=== PATIENT | female | born 1940 | race Caucasian/White ===

== ENCOUNTER → 2016-12-09 | Outpatient (CLI) | payer MEDICARE, BC ==
--- NOTE | ~2016-12-09 | CT55 ---
[facility] A Service of [facility] & [facility] RADIOLOGY TEXT RESULTS PATIENT: MARI HENDERSON LOCATION: [facility] : 40 UNIT #: [id number] AGE: [address]: Moisés Cook MD SEX: F ORDER DR: [id number] [facility] [address]. [place], [place] [address] [id number] O MR#: [id number] Acc #: [id number] NAME: MARI HENDERSON : 1940 SEX: F STUDY DATE/TIME: 12/09/2016 14:44 UNIT: [facility] ROOM: STUDY DESCRIPTION: CT Chest W Con Attending Physician: Moisés Cook M.D. Referring Physician: Moisés Cook M.D. Ordering Physician: Moisés Cook M.D. Primary Care Physician: Moisés Cook M.D. MEDICAL IMAGING REPORT This report is preliminary unless electronic signature is present EXAM CT of the chest with contrast INDICATION 76-year-old female with history of a pulmonary nodule. TECHNIQUE CT scan of the chest was performed following the administration of IV contrast. Coronal and sagittal reformatted images were obtained. There are no available studies for comparison. This CT examination was performed with one or more of the following radiation dose reduction techniques: automatic exposure control, adjustment of mA and/or kV according to patient size, and iterative reconstruction. FINDINGS There is no lymphadenopathy. There is a moderate sized hiatal hernia. There is no pleural effusion. There are some calcified mediastinal and hilar lymph nodes. Emphysema. There is biapical scarring. There are scattered tiny micronodules all measuring 4 mm and less. Would recommend a follow up chest CT in 1 year to document stability of these nodules. Limited imaging of the upper abdomen unremarkable. Bone windows are unremarkable. IMPRESSION 1. Emphysema. 2. Scattered tiny micronodules in the lungs all measuring 4 mm and less. Follow up chest CT in 1 year recommended. Dictated by... Schuyler Davidson M.D. THIS IS AN ELECTRONICALLY VERIFIED REPORT STS. [facility] A Service of [facility] & [facility] RADIOLOGY TEXT RESULTS PATIENT: MARI HENDERSON LOCATION: [facility] : 40 UNIT #: [id number] AGE: [address]: Moisés Cook MD SEX: F ORDER DR: Schuyler Davidson M.D. at 12/13/2016 8:04 AM SUSAN/cris TD: 12/12/2016 13:01 JOB #: [id number] MEDICAL IMAGING REPORT Page 1 of 1 COPY
[2016-12-09 14:41] LABS: POC - CREATININE 0.73 mg/dL (0.44-1.03); POC - GFR >60.0 mL/min (>60)
== END | disposition home or self-care (01) ==
LOC: CCAT 14:10
PROVIDERS: Family Medicine
DX: R91.1 Solitary pulmonary nodule (principal); J40 Bronchitis, not specified as acute or chronic; R05 Cough; R06.02 Shortness of breath; R09.89 Other specified symptoms and signs involving the circulatory and respiratory systems; J43.9 Emphysema, unspecified; R91.8 Other nonspecific abnormal finding of lung field
CPT/HCPCS: 71260; 82565; Q9967

== ENCOUNTER → 2017-05-23 | Outpatient (CLI) | payer MEDICARE, BC ==
--- NOTE | ~2017-05-23 | MR113 ---
[facility] A Service of [facility] & [facility] RADIOLOGY TEXT RESULTS PATIENT: MARI HENDERSON LOCATION: [facility] : 40 UNIT #: [id number] AGE: [address]: Moisés Cook MD SEX: F ORDER DR: [id number] [facility] [address] [place] [address] [place], [place] [address] [id number] O MR#: [id number] Acc #: [id number] NAME: MARI HENDERSON : 1940 SEX: F STUDY DATE/TIME: 05/23/2017 9:33 UNIT: [facility] ROOM: STUDY DESCRIPTION: MR Lumbar Wo Contrast Attending Physician: Moisés Cook M.D. Referring Physician: Moisés Cook M.D. Ordering Physician: Moisés Cook M.D. Primary Care Physician: Moisés Cook M.D. MRI CENTER REPORT This report is preliminary unless electronic signature is present. EXAM MRI of the lumbar spine without. HISTORY Chronic low back pain for many years per patient (10). Complains of weakness in both legs. Sometimes it feels like her legs are going to give out when she is walking. She had a fall last year when a dog jumped on her. No cancer history. TECHNIQUE MRI of the lumbar spine performed without contrast using routine 1.5T imaging technique. FINDINGS Sagittal alignment is normal. Disc desiccation is most apparent at L4-1 where there is undiojtb-jp-pmfqzm loss of intervertebral disc height and some mixed marrow endplate degenerative change. Schmorl node formation most apparent superior endplate L3. Conus medullaris terminates at L1 level and is normal. There is incidental focal fat or hemangioma at T12 vertebral body. At L1-2, there is mild facet hypertrophy, minor disc bulging but no canal stenosis or foraminal impingement. At L2-3, there is mild bilateral facet degenerative change worse to the right with mild broad-based posterior disc bulging extending into the foramina. There is mild effacement of the anterior thecal sac with very mild canal stenosis with mild right inferior foraminal narrowing. At L3-4, there is moderate facet degenerative change bilaterally with broad posterior disc protrusion more prominent left onbzkazgmu-lh-lzwpgbeksjqmde location. There is mild canal stenosis and mass effect on the left greater than right lateral recess. There is mild STS. [facility] A Service of [facility] & [facility] RADIOLOGY TEXT RESULTS PATIENT: MARI HENDERSON [facility] UNIT #: [id number] AGE: [address]: Moisés Cook MD SEX: F ORDER DR: left inferior foraminal narrowing, and there is some mass effect on expected location of the left L3 root lateral to the foramen by the disc material. Milder right-sided foraminal narrowing. At L4-5, there is moderate facet degenerative change bilaterally worse to the right. There is a mild concentric disc bulge and endplate spondylosis. There is mild mass effect on the thecal sac and left greater than right lateral recess. There is moderate right and ebyx-ue-fbvemuqt left-sided foraminal narrowing. At L5-S1, there is severe right pllztbno-jc-trnejn left-sided facet arthritis, and there is subtle anterolisthesis of the left side of L5 on S1 because of the facet arthritis. There is broad posterior disc protrusion/small extrusion more focal to the left side posterolaterally such that there is mass effect on the left lateral recess expected location left S1 root and left foramen expected location left L5 root. There is no central canal stenosis and the right foramen is patent. The foraminal compromise on the left is moderate. IMPRESSION 1. Lumbar degenerative changes are detailed above. Please refer to the mtaob-uh-bkgaa description. There is mild canal stenosis and multilevel foraminal impingement. In general, the disease is asymmetrically worse on the left than the right. See full stricture. Dictated by... Alice Potter M.D. THIS IS AN ELECTRONICALLY VERIFIED REPORT Alice Potter M.D. at 05/24/2017 5:19 PM LAILA/jacqueline TD: 05/23/2017 17:58 JOB #: [id number] MRI CENTER REPORT Page 1 of 1 COPY
== END | disposition home or self-care (01) ==
LOC: CMRI 08:27
DX: M54.5 Low back pain (principal); G89.29 Other chronic pain; R55 Syncope and collapse; R01.1 Cardiac murmur, unspecified; M47.896 Other spondylosis, lumbar region; M48.06 Spinal stenosis, lumbar region; M51.26 Other intervertebral disc displacement, lumbar region; M51.27 Other intervertebral disc displacement, lumbosacral region; M46.97 Unspecified inflammatory spondylopathy, lumbosacral region; M99.83 Other biomechanical lesions of lumbar region
CPT/HCPCS: 72148

== ENCOUNTER → 2017-05-26 | Outpatient (CLI) | payer MEDICARE, BC | END | disposition home or self-care (01) | LOC: CECH 10:36 | DX: R01.1 Cardiac murmur, unspecified (principal); M54.5 Low back pain; G89.29 Other chronic pain; R55 Syncope and collapse; I51.7 Cardiomegaly; I34.0 Nonrheumatic mitral (valve) insufficiency; I34.8 Other nonrheumatic mitral valve disorders | CPT/HCPCS: 93306 ==